=== PATIENT | female | born 1960 | race Caucasian/White ===

== ENCOUNTER 2017-08-23 23:54 | Emergency (ER) | payer MEDICARE ==
[2017-08-24 00:41] LABS: HEMOGLOBIN 11.2 g/dL (12-16); LYMPHOCYTES 24.4 % (15-50); MCH 30.6 pg (26.0-34.0); MCV 87.4 fL (80.0-100.0); MEAN PLATELET VOLUME 9.7 fL (7.4-10.4); NEUTROPHILS 67.2 % (40-80); PLATELET COUNT 430 10x3/uL (130-400); RBC 3.66 10x6/uL (4.00-5.40); WBC 11.2 10x3/uL (4.8-10.8)
[2017-08-24 01:01] LABS: UDS - AMPHET POSITIVE QUAL (NEGATIVE); UDS - BARB NEGATIVE QUAL (NEGATIVE); UDS - BENZO NEGATIVE QUAL (NEGATIVE); UDS - COCAINE NEGATIVE QUAL (NEGATIVE); UDS - OPIATE NEGATIVE QUAL (NEGATIVE); UDS - PCP NEGATIVE QUAL (NEGATIVE); UDS - THC NEGATIVE QUAL (NEGATIVE)
[2017-08-24 01:03] LABS: ALBUMIN 2.5 g/dL (3.4-5.0); ALKALINE PHOSPHATASE 122 U/L (46-116); ALT (SGPT) 23 U/L (10-68); CALC OSMOLALITY 288 mosm/kg (275-300); CALCIUM 8.3 mg/dL (8.5-10.1); CARBON DIOXIDE 23.6 mmol/L (21.0-32.0); CHLORIDE - SERUM 103 mmol/L (98-107); CREATININE - SERUM 1.2 mg/dL (0.6-1.3); GLUCOSE 316 mg/dL (74-106); POTASSIUM - SERUM 3.2 mmol/L (3.5-5.1); PROTEIN - SERUM 7.1 g/dL (6.4-8.2); SODIUM 135 mmol/L (136-145); UREA NITROGEN 32 mg/dL (7-18); eGFR NON AFRICAN AMERICAN 50 mL/min (90-120)
[2017-08-24 01:07] LABS: APPEARANCE HAZY (CLEAR); BILIRUBIN NEGATIVE (NEGATIVE); COLOR STRAW (YELLOW); GLUCOSE 1000 mg/dL (NEGATIVE); KETONE NEGATIVE (NEGATIVE); NITRITE NEGATIVE (NEGATIVE); PROTEIN 2+ mg/dL (NEGATIVE); SPECIFIC GRAVITY 1.015 (1.005-1.020); UROBILINOGEN NORMAL (NORMAL)
[2017-08-24 01:08] LABS: EPITHELIAL CELLS 0-5 /hpf (0-5); RED CELLS - URINE 0-5 /hpf (0-5); WHITE CELLS - URINE 0-5 /hpf (0-5)
[2017-08-24 01:09] LABS: BACTERIA MANY /hpf (NONE SEEN)
[2017-08-24 01:25] LABS: CREATINE KINASE 258 UL (21-215); LIPASE 225 U/L (73-393); PRO BNP 2827 pg/mL (0-125); TROPONIN-I < 0.017 ng/mL (0.000-0.060)
[2017-08-24 01:26] LABS: CKMB 7.4 U/L (0.0-3.6)
== END 2017-08-24 01:58 | disposition home or self-care (01) ==
LOC: D.ER 23:54
PROVIDERS: Family Medicine
DX: R53.1 Weakness (principal); F15.10 Other stimulant abuse, uncomplicated

== ENCOUNTER 2018-06-14 14:42 | Emergency (ER) | payer MEDICARE ==
[~2018-06-14] VITALS: Ht 157.5 cm; Wt 56.8 kg
[2018-06-14 14:50] VITALS: Ht 157.5 cm; Wt 56.8 kg
[2018-06-14] MEDS ORDERED: DOLOPHINE HCL10 MG PO (14:53)
[2018-06-14] MEDS ORDERED: NOVOLOG100 UNIT/1 (14:54)
[2018-06-14 16:00] LABS: BASOPHILS 0.1 % (0-2); EOSINOPHILS 0.4 % (0-7); IMMATURE GRANULOCYTES 0.3 % (0-5); MCH 29.9 pg (26.0-34.0); MCHC 32.3 g/dL (31.0-37.0); MCV 92.8 fL (80.0-100.0); MEAN PLATELET VOLUME 9.6 fL (7.4-10.4); MONOCYTES 4.9 % (2-11); NEUTROPHILS 84.3 % (40-80); PLATELET COUNT 484 10x3/uL (130-400); RBC 3.34 10x6/uL (4.00-5.40); RDW 14.6 % (11.5-14.5); WBC 9.9 10x3/uL (4.8-10.8)
[2018-06-14 16:22] LABS: ALBUMIN 3.5 g/dL (3.4-5.0); ALKALINE PHOSPHATASE 132 U/L (46-116); ALT (SGPT) 25 U/L (10-68); BILIRUBIN - TOTAL 0.42 mg/dL (0.2-1.3); CALCIUM 9.2 mg/dL (8.5-10.1); CARBON DIOXIDE 26.3 mmol/L (21.0-32.0); CHLORIDE - SERUM 102 mmol/L (98-107); CREATININE - SERUM 1.1 mg/dL (0.6-1.3); POTASSIUM - SERUM 3.8 mmol/L (3.5-5.1); PROTEIN - SERUM 7.5 g/dL (6.4-8.2); SODIUM 140 mmol/L (136-145); UREA NITROGEN 24 mg/dL (7-18); eGFR NON AFRICAN AMERICAN 55 mL/min (90-120)
[2018-06-14 16:24] LABS: AMYLASE - SERUM 34 U/L (25-115); LIPASE 127 U/L (73-393)
[2018-06-14 16:33] LABS: CALC OSMOLALITY 287 mosm/kg (275-300); GLUCOSE 180 mg/dL (74-106); TROPONIN-I < 0.017 ng/mL (0.000-0.060)
[2018-06-14] MEDS ORDERED: ZOFRAN ODT4 MG/UDTAB PO (16:47)
[2018-06-14 17:45] VITALS: BP 166/88
== END 2018-06-14 18:50 | disposition home or self-care (01) ==
LOC: D.ER 14:42
PROVIDERS: Emergency Medicine
DX: B34.9 Viral infection, unspecified (principal)

== ENCOUNTER 2018-08-22 02:38 | Emergency (ER) | payer MEDICARE ==
[~2018-08-22] VITALS: Ht 157.5 cm; Wt 54.5 kg
[~2018-08-22 02:38] MED LIST: DOLOPHINE HCL10 MG PO; NOVOLOG100 UNIT/1; ZOFRAN ODT4 MG/UDTAB PO
[2018-08-22 03:02] VITALS: Ht 157.5 cm; Wt 54.5 kg
[2018-08-22 04:22] LABS: BASOPHILS 0.2 % (0-2); EOSINOPHILS 1.2 % (0-7); HEMATOCRIT 32.5 % (36.0-48.0); HEMOGLOBIN 10.7 g/dL (12-16); IMMATURE GRANULOCYTES 0.1 % (0-5); MCH 29.2 pg (26.0-34.0); MCHC 32.9 g/dL (31.0-37.0); MCV 88.6 fL (80.0-100.0); MEAN PLATELET VOLUME 9.9 fL (7.4-10.4); MONOCYTES 8.4 % (2-11); NEUTROPHILS 71.1 % (40-80); RBC 3.67 10x6/uL (4.00-5.40); RDW 13.6 % (11.5-14.5); WBC 9.4 10x3/uL (4.8-10.8)
[2018-08-22 04:42] LABS: PLATELET COUNT 387 10x3/uL (130-400)
[2018-08-22 04:47] LABS: APTT 26.7 SECONDS (22.8-39.4); INR 0.97 (0.85-1.17); PROTIME 12.4 SECONDS (11.6-15.0)
[2018-08-22 04:51] LABS: BILIRUBIN - TOTAL 0.19 mg/dL (0.2-1.3); CALCIUM 9.3 mg/dL (8.5-10.1); CARBON DIOXIDE 26.5 mmol/L (21.0-32.0); POTASSIUM - SERUM 3.5 mmol/L (3.5-5.1); PROTEIN - SERUM 7.7 g/dL (6.4-8.2)
[2018-08-22 05:45] LABS: CKMB 1.4 U/L (0.0-3.6); CREATINE KINASE 60 UL (21-215); TROPONIN-I < 0.017 ng/mL (0.000-0.060)
[2018-08-22 07:10] LABS: UDS - AMPHET NEGATIVE QUAL (NEGATIVE); UDS - BARB NEGATIVE QUAL (NEGATIVE); UDS - BENZO NEGATIVE QUAL (NEGATIVE); UDS - COCAINE NEGATIVE QUAL (NEGATIVE); UDS - OPIATE NEGATIVE QUAL (NEGATIVE); UDS - PCP NEGATIVE QUAL (NEGATIVE); UDS - THC NEGATIVE QUAL (NEGATIVE)
[2018-08-22 07:11] LABS: APPEARANCE HAZY (CLEAR); BILIRUBIN NEGATIVE (NEGATIVE); COLOR YELLOW (YELLOW); GLUCOSE NEGATIVE (NEGATIVE); KETONE NEGATIVE (NEGATIVE); NITRITE NEGATIVE (NEGATIVE); PROTEIN 2+ mg/dL (NEGATIVE); SPECIFIC GRAVITY 1.025 (1.005-1.020); UROBILINOGEN NORMAL (NORMAL)
[2018-08-22 07:23] LABS: BACTERIA MODERATE /hpf (NONE SEEN); EPITHELIAL CELLS 0-5 /hpf (0-5); MUCUS <1+ /lpf (NONE SEEN); WHITE CELLS - URINE RARE /hpf (0-5)
[2018-08-22 08:21] VITALS: BP 199/88
== END 2018-08-22 08:20 | disposition home or self-care (01) ==
LOC: D.ER 02:38
PROVIDERS: Family Medicine
DX: Z86.73 Personal history of transient ischemic attack (TIA), and cerebral infarction without residual deficits (principal); G81.94 Hemiplegia, unspecified affecting left nondominant side

== ENCOUNTER 2018-08-30 17:14 | Emergency (ER) | payer MEDICARE ==
[2018-08-30 17:19] VITALS: BMI 24.7
[2018-08-30] MEDS ORDERED: UNK BP MED (17:22)
[2018-08-30] MEDS ORDERED: GLUCOPHAGE500 MG PO (17:22)
[2018-08-30 17:54] LABS: BASOPHILS 0.2 % (0-2); EOSINOPHILS 0.7 % (0-7); HEMATOCRIT 34.6 % (36.0-48.0); HEMOGLOBIN 11.3 g/dL (12-16); IMMATURE GRANULOCYTES 0.1 % (0-5); LYMPHOCYTES 20.7 % (15-50); MCHC 32.7 g/dL (31.0-37.0); MCV 88.9 fL (80.0-100.0); MONOCYTES 7.2 % (2-11); NEUTROPHILS 71.1 % (40-80); PLATELET COUNT 347 10x3/uL (130-400); RBC 3.89 10x6/uL (4.00-5.40); RDW 13.4 % (11.5-14.5); WBC 9.2 10x3/uL (4.8-10.8)
--- NOTE | 2018-08-30 18:10 | NUR ---
Spoke to the patient and she denies any SI, she did say at one time in a past visit she wished she would not wake up. Today she is not suicidal and her only desire is to be placed in a [facility] because she is pending homelessness.
[2018-08-30 18:27] LABS: APTT 26.9 SECONDS (22.8-39.4); INR 0.98 (0.85-1.17); PROTIME 12.5 SECONDS (11.6-15.0)
[2018-08-30 18:45] LABS: ALKALINE PHOSPHATASE 117 U/L (46-116); ALT (SGPT) 28 U/L (10-68); BILIRUBIN - TOTAL 0.28 mg/dL (0.2-1.3); CALC OSMOLALITY 296 mosm/kg (275-300); CALCIUM 8.9 mg/dL (8.5-10.1); CARBON DIOXIDE 25.5 mmol/L (21.0-32.0); CHLORIDE - SERUM 108 mmol/L (98-107); POTASSIUM - SERUM 3.5 mmol/L (3.5-5.1); PROTEIN - SERUM 7.6 g/dL (6.4-8.2); SODIUM 144 mmol/L (136-145); UREA NITROGEN 21 mg/dL (7-18); eGFR NON AFRICAN AMERICAN 61 mL/min (90-120)
[2018-08-30 18:48] LABS: GLUCOSE 221 mg/dL (74-106)
[2018-08-30 18:51] LABS: CKMB 1.5 U/L (0.0-3.6); CREATINE KINASE 62 UL (21-215); MAGNESIUM - SERUM 1.9 mg/dL (1.8-2.4); THYROID STIMULATING HORMONE 1.37 uIU/mL (0.36-3.74); TROPONIN-I < 0.017 ng/mL (0.000-0.060)
[2018-08-30 20:09] VITALS: BP 167/80
== END 2018-08-30 20:09 | disposition home or self-care (01) ==
LOC: D.ER 17:14
PROVIDERS: Emergency Medicine
DX: I69.354 Hemiplegia and hemiparesis following cerebral infarction affecting left non-dominant side (principal); E11.9 Type 2 diabetes mellitus without complications; I10 Essential (primary) hypertension

== ENCOUNTER → 2020-05-29 17:58 | Outpatient (CLI) | payer MEDICARE ==
[~2020-05-29 17:58] MED LIST changes: +GLUCOPHAGE500 MG PO; +UNK BP MED
[2020-05-29 19:35] LABS: ANION GAP 13.7 mmol/L (8-16); CALCIUM 10.2 mg/dL (8.5-10.1); CREATININE - SERUM 2.6 mg/dL (0.6-1.3); POTASSIUM - SERUM 5.7 mmol/L (3.5-5.1)
[2020-05-29 19:42] LABS: BASOPHILS 0.1 % (0-2); EOSINOPHILS 0.1 % (0-7); HEMATOCRIT 32.1 % (36.0-48.0); HEMOGLOBIN 10.1 g/dL (12-16); IMMATURE GRANULOCYTES 0.2 % (0-5); LYMPHOCYTE ABS# 1.35 10x3/uL (1.18-3.74); LYMPHOCYTES 9.6 % (15-50); MCH 30.2 pg (26.0-34.0); MCHC 31.5 g/dL (31.0-37.0); MCV 96.1 fL (80.0-100.0); MEAN PLATELET VOLUME 10.1 fL (7.4-10.4); MONOCYTES 3.9 % (2-11); NEUTROPHIL ABS# 12.16 10x3/uL (1.56-6.13); NEUTROPHILS 86.1 % (40-80); PLATELET COUNT 346 10x3/uL (130-400); RBC 3.34 10x6/uL (4.00-5.40); WBC 14.1 10x3/uL (4.8-10.8)
== END | disposition home or self-care (01) ==
LOC: D.LABREF 17:58
PROVIDERS: ATTEND Family Medicine
DX: R11.10 Vomiting, unspecified (principal)

== ENCOUNTER → 2020-05-31 19:45 | Outpatient (CLI) | payer MEDICAID ==
[2020-05-31 20:32] LABS: ANION GAP 14.4 mmol/L (8-16); CALCIUM 9.5 mg/dL (8.5-10.1); CARBON DIOXIDE 25.6 mmol/L (21.0-32.0)
== END | disposition home or self-care (01) ==
LOC: D.LABREF 19:45
PROVIDERS: ATTEND Family Medicine
DX: E11.9 Type 2 diabetes mellitus without complications (principal); I10 Essential (primary) hypertension

== ENCOUNTER → 2020-06-03 17:32 | Outpatient (CLI) | payer MEDICAID ==
[2020-06-03 17:58] LABS: BILIRUBIN NEGATIVE (NEGATIVE); KETONE NEGATIVE (NEGATIVE); NITRITE NEGATIVE (NEGATIVE); UROBILINOGEN NORMAL mg/dL (< 2)
== END | disposition home or self-care (01) ==
LOC: D.LABREF 17:32
PROVIDERS: ATTEND Family Medicine
DX: R41.0 Disorientation, unspecified (principal); D72.829 Elevated white blood cell count, unspecified

== ENCOUNTER 2020-09-16 00:48 | Emergency (ER) | payer MEDICARE ==
[~2020-09-16] VITALS: Ht 157.5 cm; Wt 45.5 kg
[2020-09-16 01:03] VITALS: Ht 157.5 cm; Wt 45.5 kg
[2020-09-16 01:46] LABS: BASOPHILS 0.2 % (0-2); EOSINOPHILS 0.3 % (0-7); HEMATOCRIT 24.2 % (36.0-48.0); HEMOGLOBIN 8.2 g/dL (12-16); LYMPHOCYTES 8.8 % (15-50); MCH 29.9 pg (26.0-34.0); MCHC 33.7 g/dL (31.0-37.0); MCV 88.7 fL (80.0-100.0); MEAN PLATELET VOLUME 7.6 fL (7.4-10.4); MONOCYTES 5.2 % (2-11); NEUTROPHILS 85.5 % (40-80); PLATELET COUNT 396 10x3/uL (130-400); RBC 2.73 10x6/uL (4.00-5.40); RDW 13.8 % (11.5-14.5); WBC 14.4 10x3/uL (4.8-10.8)
[2020-09-16 01:52] LABS: CALC OSMOLALITY 292 mosm/kg (275-300); CALCIUM 9.1 mg/dL (8.5-10.1); CHLORIDE - SERUM 104 mmol/L (98-107); CREATININE - SERUM 1.8 mg/dL (0.6-1.3); POTASSIUM - SERUM 3.4 mmol/L (3.5-5.1); SODIUM 141 mmol/L (136-145); UREA NITROGEN 24 mg/dL (7-18); eGFR NON AFRICAN AMERICAN 31 mL/min (90-120)
[2020-09-16 01:53] LABS: GLUCOSE 239 mg/dL (74-106)
[2020-09-16 02:00] LABS: ALBUMIN 3.1 g/dL (3.4-5.0); ALKALINE PHOSPHATASE 90 U/L (30-120); ALT (SGPT) 23 U/L (10-68); AMYLASE - SERUM 61 U/L (25-115); BILIRUBIN - TOTAL 0.29 mg/dL (0.2-1.3); LIPASE 157 U/L (73-393); MAGNESIUM - SERUM 1.8 mg/dL (1.8-2.4); PROTEIN - SERUM 7.4 g/dL (6.4-8.2); TROPONIN-I < 0.017 ng/mL (0.000-0.060)
[2020-09-16] MEDS ORDERED: ZOFRAN ODT4 MG/UDTAB PO (03:42)
[2020-09-16 04:07] VITALS: BP 139/68
== END 2020-09-16 03:48 | disposition home or self-care (01) ==
LOC: D.ER 00:48
PROVIDERS: Family Medicine
DX: D64.9 Anemia, unspecified (principal); R11.2 Nausea with vomiting, unspecified; N28.9 Disorder of kidney and ureter, unspecified; Z86.73 Personal history of transient ischemic attack (TIA), and cerebral infarction without residual deficits; I10 Essential (primary) hypertension; E11.9 Type 2 diabetes mellitus without complications; Z79.84 Long term (current) use of oral hypoglycemic drugs; E78.5 Hyperlipidemia, unspecified